=== PATIENT | female | born 1960 | race Caucasian/White ===

== ENCOUNTER 2023-08-15 20:10 | Emergency (ER) | payer OTHER, SELFPAY ==
[2023-08-15 20:14] VITALS: BP 159/88
[2023-08-15 20:16] LABS: Glucose - Point of Care 85 mg/dl (70-99)
[2023-08-15 20:37] LABS: % Basophils 0.4 % (0-2); % Eosinophils 2.1 % (0-6); % Immature Granulocytes 0.2 % (0-0.5); % Lymphocytes 27.5 % (20.5-51.1); % Monocytes 6.2 % (1.7-9.3); % Neutrophils 63.6 % (42.2-75.2); Absolute Eosinophils 0.2 10^3/uL (0-0.7); Absolute Lymphocytes 2.8 10^3/uL (1.2-3.4); Absolute Monocytes 0.6 10^3/uL (0.1-0.6); Absolute Neutrophils 6.6 10^3/uL (1.4-6.5); Hematocrit 46.9 % (37.0-47.0); Hemoglobin 15.3 g/dL (12.0-16.0); Mean Corp Hgb Conc. 32.6 g/dL (33.0-37.0); Mean Corpuscular Hgb 29.8 pg (27.0-31.0); Mean Corpuscular Volume 91.2 fL (81.0-99.0); Mean Platelet Volume 8.9 fL (7.4-10.4); Nucleated Red Blood Cells % 0 %; Platelet Count 251 10^3/uL (130-400); Red Blood Cell Count 5.14 10^6/uL (4.20-5.40); Red Cell Dist. Width 13.9 % (11.5-14.5); White Blood Cell Count 10.3 10^3/uL (4.8-10.8)
[2023-08-15 20:38] LABS: Urine Albumin Negative (Neg - Trace); Urine Bilirubin Negative (Negative); Urine Character Clear (Clear); Urine Color Yellow; Urine Glucose Negative (Negative); Urine Ketone Trace (Negative); Urine Leukocyte Negative (Negative); Urine Nitrite Negative (Negative); Urine Occult Blood Trace (Negative); Urine Specific Gravity 1.015 (<1.030); Urine Urobilinogen Negative (Neg - 1+); Urine pH 6.5 (5.0-9.0)
[2023-08-15 20:43] VITALS: BP 140/71
[2023-08-15] MEDS: ZOFRAN 4 MG IV (20:47)
[2023-08-15 20:48] LABS: Urine Bacteria Few (Negative); Urine Mucus Few; Urine Red Blood Cell 0-2 /HPF (0-2); Urine White Cell 0-2 /HPF (0-5)
[2023-08-15] MEDS: NSS 1000 IV (20:48)
[2023-08-15 20:50] LABS: ALT (SGPT) 21 U/L (0-35); AST (SGOT) 24 U/L (14-36); Albumin 4.8 g/dl (3.5-5.0); Alkaline Phosphatase 70 U/L (38-126); Blood Urea Nitrogen 15 mg/dl (7-17); Calcium 9.8 mg/dl (8.4-10.2); Carbon Dioxide 27 mmol/L (22-30); Chloride 104 mmol/L (98-107); Glucose 97 mg/dl (70-99); Lipase 54 U/L (23-300); Potassium 4.9 mmol/L (3.5-5.1); Sodium 137 mmol/L (135-145); Total Bilirubin 0.8 mg/dl (0.2-1.3); Total Protein 7.8 g/dl (6.3-8.2); eGFR > 60.00
[2023-08-15 21:00] VITALS: BP 134/70
[2023-08-15 22:00] VITALS: BP 126/69
[2023-08-15 22:08] LABS: Glucose - Point of Care 81 mg/dl (70-99)
[2023-08-15 23:00] VITALS: BP 118/72
--- NOTE | 2023-08-15 23:09 | ED.GENMED ---
History of Present Illness
General
Chief Complaint: Abdominal Symptoms
Source: patient and family (Daughter who is at bedside and interpreting for her mother)
Exam Limitations: none
Time Seen by Provider: 08/15/23 21:04
Nursing documentation reviewed up to this point in time: agreed with
Travel History
Have you had any contact with someone who has COVID-19?: No
Do you have any symptoms of coronavirus? Fever > 100 degrees, chills, cough, shortness of breath, sore throat, loss of taste or smell, muscle aches, or headache?: No
History of Present Illness
History of Present Illness:
This is a 63-year-old [place]-speaking woman who has history of prediabetes, tachycardia. She had been prescribed semaglutide by her PCP, and initial prescription in January. She had began taking semaglutide but then discontinued shortly after
initial dose in January, but she has been receiving refills of this prescription with several semaglutide pens 'stacking up' in her refrigerator.
Today she decided to resume semaglutide and used the 2 mg per dose pen and after injecting into her abdomen she did not believe that the pen was working, did not believe that she received the injection thus continued to repeatedly turn the handle
and repeat the injections until the full 8 mg cartridge was depleted. She denies wanting to hurt herself but was unsure as to exactly how to administer her medication. She complains of nausea several episodes of vomiting sporadically this
afternoon. She denies abdominal pain, denies fever nor chills, denies diarrhea or constipation. She was concern for possible hypoglycemia.
She takes no other medications for her diabetes. Her only other medication is bisoprolol prescribed for tachycardia. She denies taking extra bisoprolol.
Past History
Past History
ED Past Medical History: Arrthythmia (Tachycardia), HTN and NIDDM
ED Past Surgical History: Cholecystectomy
Social History
Tobacco: Non-smoker
Alcohol: None
Personal:
Living: with family
Family History
Family History: Other (Noncontributory)
Phy Exam
Physical Exam
Physical Exam:
GENERAL: 63-year-old woman appears her stated age, bright and alert, pleasant, appears in no acute distress. Daughter is accompanying.
EYE: pupils equal and reactive. anicteric
NECK: Supple, nontender, no meningismus, no significant adenopathy.
ENT: posterior pharynx is clear, oral mucosa is moist. No rhinorrhea.
CARDIAC: Regular rate and rhythm. no murmur.
LUNGS: Clear breath sounds bilaterally, no acute respiratory distress, no wheezes/rales/rhonchi
ABDOMEN: Soft, nondistended, without focal tenderness, no r/g, no cvat. normoactive BS.
NEUROLOGICAL: Alert and oriented x3, no focal neuro deficits.
SKIN: Warm and dry, normal color, skin intact. No rash.
MUSCULOSKELETAL: No C/C/E. peripheral pulses are full and equal b/l. No palpable tenderness.
PSYCH: Normal and appropriate interaction.
Course
Orders/Labs/Results
Orders:
Orders
08/15/23 20:25
Electrocardiogram (*1) Urgent
Reason for Study: Abdominal Pain
EKG- Treatment ONCE
IV Insert/Care/Rem.- Treatment PRN
08/15/23 20:29
Complete Blood Count/With Diff Urgent
Comprehensive Metabolic Panel Urgent
Lipase Urgent
Ondansetron Injectable [Zofran] 4 mg .ROUTE .STK-MED ONE
08/15/23 20:32
Urinalysis Reflex To Culture Urgent
Date Specimen was Collected: 08/15/23
Time Specimen was Collected: 20:25
Urine Microscopic Reflex Cult Urgent
08/15/23 20:45
Ondansetron Injectable [Zofran] 4 mg IV NOW STA
08/15/23 20:47
0.9% Sodium Chloride 1000 ml [Nss] 1,000 ml IV BOLUS
08/15/23 21:15
Encourage PO Hydration-Treatme ONCE
Abnormal Lab Results
08/15/23 08/15/23
20:29 20:32
MCHC 32.6 L g/dL
(33.0-37.0)
Absolute Neuts (auto) 6.6 H 10^3/uL
(1.4-6.5)
Urine Ketones Trace A
(Negative)
Ur Occult Blood Reflex Trace A
(Negative)
Urine Bacteria (Reflex) Few A
(Negative)
08/15/23 20:29
08/15/23 20:29
Vital Signs
Initial and Last Documented VS:
Initial Vital Signs
Temp Pulse Resp BP Pulse Ox
97.7 F 77 20 159/88 98
08/15/23 20:14 08/15/23 20:14 08/15/23 20:14 08/15/23 20:14 08/15/23 20:14
Last Documented Vital Signs
Temp Pulse Resp BP Pulse Ox
97.7 F 80 16 127/67 97
08/16/23 00:00 08/16/23 00:00 08/16/23 00:00 08/16/23 00:00 08/16/23 00:00
MDM/Problems Addressed
Differential Diagnosis Includes:
Concern for unintentional semaglutide overdose, concern for gastroparesis as cause for nausea and vomiting.
Abdomen is soft and nontender and patient denies abdominal pain. Small bowel obstruction is unlikely.
Semaglutide alone should not cause hypoglycemia and thus far she has had no episodes of hypoglycemia.
She remains hemodynamically stable.
Labs are unremarkable, reassuring.
After 1 IV dose of Zofran and nausea has resolved.
Will trial oral fluids.
Lengthy discussion with daughter and patient that the biggest side effect of semaglutide is GI issues/nausea and vomiting this is why initial dose is begun at 0.25 mg weekly for 4 weeks and then slowly titrated up from there on a monthly basis.
I suspect intermittent nausea will persist over the next several days but should resolve.
Recommend she absolutely avoid any further doses of semaglutide for at least the next 7 to 10 days.
Going forward if she elects to resume semaglutide recommend she start at the lowest dose, 0.25 mg weekly for 4 weeks.
Prompt follow-up with PCP for recheck.
A prescription for as needed Reglan will be provided for as needed nausea.
The patient able to tolerate oral fluids with no return of nausea will discharge to home.
Chronic conditions affecting care: DM and Arrhythmia
*Pulse Oximetry
Patient hypoxic: no
*EKG
Interpreted by ED Provider?: Yes
Interpretation: normal
Comparison EKG: no comparison EKG present
Rate: normal
Rhythm: sinus
[place]: normal axis
Interval: normal interval
QRS Pattern: normal QRS
Ischemia: no ischemia
*Supervising Editor [employer] Reel Interpretation
Rate: normal
Interpretation: normal
Rhythm: sinus
*Critical Care Note
Total Time (30-74mins, 75-104mins- exclusive of procedures): Not Applicable
ED Attending Note
-
Portions of this chart may have been created with voice recognition software.� Occasional wrong word or��sound alike� substitutions may have occurred due to the inherent limitations of voice recognition software.
Discharge Plan
Departure
Patient Disposition: Home (Routine Discharge)
Date of Disposition: 08/15/23
Time of Disposition: 23:09
Patient with high blood pressure during this ER visit?: No
Condition: Good
Discharge Problem:
unintentional semaglutide overdose
Instructions: Nausea and Vomiting, Adult (DC), Semaglutide
Prescriptions:
New
metoclopramide HCl [Reglan] 10 mg tablet
10 mg PO Q6H PRN (Reason: nausea and vomiting) Qty: 20 0RF
Referrals:
Magdalena Bianchi MD [Family Provider] - Call in 1-3 days for appt
Interventions
Interventions:
*Risk Screen - Suicide Last Done: 08/15/23 20:14
*General Assessment Last Done: 08/15/23 20:14
*Neglect/Abuse Screening Last Done: 08/15/23 20:14
ED- Fall Risk Assessment Last Done: 08/15/23 20:14
*ED COVID-19 Vaccine History Last Done: 08/15/23 20:14
*Nursing Disposition Last Done: 08/16/23 00:00
UT-Shxxho-Ndqrevadgt Assessment Last Done: 08/15/23 20:58
ED- Cardiac Assessment Last Done: 08/15/23 23:30
ED- Neurological Assessment Last Done: 08/15/23 20:58
ED Swallowing Screen Last Done: 08/15/23 21:42
[2023-08-15 23:57] VITALS: BP 127/67
[2023-08-16] VITALS: BP 127/67
== END 2023-08-16 | disposition home or self-care (01) ==
LOC: EMR 20:10
PROVIDERS: EMERGENCY PHYSICIAN Emergency Medicine; FAMILY PHYSICIAN Internal Medicine
DX: T65.891A Toxic effect of other specified substances, accidental (unintentional), initial encounter (principal); E11.649 Type 2 diabetes mellitus with hypoglycemia without coma
CPT/HCPCS: 99284; 96374; 96361; 80053; 81003; 81015; 82962; 83690; 85025; 93005

== ENCOUNTER 2024-06-07 23:52 | Emergency (ER) | payer OTHER, SELFPAY ==
[2024-06-07 23:56] VITALS: BP 136/79
[2024-06-08] MEDS: TYLENOL 1000 MG PO (00:12)
[2024-06-08 01:19] LABS: % Basophils 0.4 % (0-2); % Eosinophils 2.4 % (0-6); % Immature Granulocytes 0.2 % (0-0.5); % Lymphocytes 35.7 % (20.5-51.1); % Monocytes 7.2 % (1.7-9.3); % Neutrophils 54.1 % (42.2-75.2); Absolute Eosinophils 0.2 10^3/uL (0-0.7); Absolute Lymphocytes 3.3 10^3/uL (1.2-3.4); Absolute Monocytes 0.7 10^3/uL (0.1-0.6); Absolute Neutrophils 5.1 10^3/uL (1.4-6.5); Hematocrit 39.9 % (37.0-47.0); Hemoglobin 13.3 g/dL (12.0-16.0); Mean Corp Hgb Conc. 33.3 g/dL (33.0-37.0); Mean Corpuscular Hgb 30.2 pg (27.0-31.0); Mean Corpuscular Volume 90.7 fL (81.0-99.0); Mean Platelet Volume 9.1 fL (7.4-10.4); Nucleated Red Blood Cells % 0 %; Platelet Count 259 10^3/uL (130-400); White Blood Cell Count 9.4 10^3/uL (4.8-10.8)
[2024-06-08 01:37] LABS: Urine Albumin Negative (Neg - Trace); Urine Bilirubin Negative (Negative); Urine Character Clear (Clear); Urine Color Yellow; Urine Glucose Negative (Negative); Urine Ketone Negative (Negative); Urine Leukocyte Negative (Negative); Urine Nitrite Negative (Negative); Urine Occult Blood Negative (Negative); Urine Specific Gravity 1.025 (<1.030); Urine Urobilinogen Negative (Neg - 1+)
[2024-06-08 02:32] LABS: ALT (SGPT) 23 U/L (0-35); AST (SGOT) 25 U/L (14-36); Albumin 4.4 g/dl (3.5-5.0); Alkaline Phosphatase 83 U/L (38-126); Blood Urea Nitrogen 21 mg/dl (7-17); Calcium 9.9 mg/dl (8.4-10.2); Carbon Dioxide 27 mmol/L (22-30); Chloride 101 mmol/L (98-107); Glucose 125 mg/dl (70-99); Potassium 4.6 mmol/L (3.5-5.1); Sodium 139 mmol/L (135-145); Total Bilirubin 0.3 mg/dl (0.2-1.3); eGFR > 60.00
[2024-06-08 03:29] VITALS: BMI 34.3
[2024-06-08] MEDS: VALIUM 5 MG PO (05:15)
--- NOTE | 2024-06-08 05:42 | ED.MUSCINJ ---
HPI-Injury
General
Chief Complaint: Fall
Source: patient and family
Exam Limitations: none
Time Seen by Provider: 06/08/24 03:32
Nursing documentation reviewed up to this point in time: agreed with
History of Present Illness-Injury
Initial Injury comments:
This a 64-year-old female presents emergency department with left-sided lower rib pain and back pain. She states that she slipped down 3 [address] steps. Patient was having difficulty breathing. Report reports painful inspiration on the left.
Denies fever or chills. Reports no abdominal pain. Moves all 4 extremities which are warm and dry. Denies any numbness or tingling. Has been able to ambulate without issue.
Past History
Past History
ED Past Medical History: Arrthythmia (Tachycardia), HTN and NIDDM
ED Past Surgical History: Cholecystectomy
Social History
Tobacco: Non-smoker
Alcohol: None
Personal:
Living: with family
Family History
Family History: Other (Noncontributory)
Phy Exam
General Physical Exam
General Presentation: well appearing and mild distress
General age: appears stated age
General Skin: warm and dry
General Habitus: normal
General Mental: alert
General Hydration: appears well hydrated
Pulmonary Exam
Pulmonary Exam: lungs clear
Neurological Exam
Neurological Exam: alert and oriented x3
Musculoskeletal Exam
Musculoskeletal Exam: full ROM and other (Patient has tenderness to palpation in her lower ribs on the left. She has absolutely no abdominal pain to superficial or deep palpation. No hepatosplenomegaly noted. She does have pain with movement.)
Skin Exam
Skin Exam: normal color and warm/dry
Injury Course
Orders/Labs/Results
Orders:
Orders
06/08/24
Electrocardiogram (*1) Stat
Reason for Study: Chest Pain
Comment: DONE
06/08/24 00:08
Acetaminophen [Tylenol] 1,000 mg PO NOW STA
06/08/24 00:10
Acetaminophen [Tylenol] 1,000 mg .ROUTE .STK-MED ONE
06/08/24 01:13
Complete Blood Count/With Diff Urgent
Comprehensive Metabolic Panel Urgent
06/08/24 01:19
Urinalysis Reflex To Culture Urgent
Date Specimen was Collected: 06/08/24
Time Specimen was Collected: 01:06
06/08/24 03:27
CR Ribs-left 3 Vw W/pa Chest Urgent
Reason For Exam: rib pain after fall
06/08/24 05:11
Diazepam [Valium] 5 mg PO NOW STA
Abnormal Lab Results
06/08/24
01:13
Absolute Monos (auto) 0.7 H 10^3/uL
(0.1-0.6)
BUN 21 H mg/dl
(7-17)
Glucose 125 H mg/dl
(70-99)
06/08/24 01:13
06/08/24 01:13
*Critical Care Note
Total Time (30-74mins, 75-104mins- exclusive of procedures): Not Applicable
Update Note
Update Note:
X-rays were deemed negative by myself. I do not see any evidence of acute osseous abnormality. Patient's pain appears to be musculoskeletal as it is reproducible with twisting of the torso palpation on the 12th rib medially. I did give her Valium
and she states that her symptoms had improved. At this point patient wishes to be discharged home. She had no further questions. She is accompanied by her daughter who helped with translation.
ED Attending Note
-
Portions of this chart may have been created with voice recognition software.� Occasional wrong word or��sound alike� substitutions may have occurred due to the inherent limitations of voice recognition software.
Discharge Plan
Departure
Patient Disposition: Home (Routine Discharge)
Date of Disposition: 06/08/24
Time of Disposition: 05:48
Patient with high blood pressure during this ER visit?: Yes
Discharge Problem:
Pain in rib, Fall
Instructions: Preventing falls in adults, How to use an incentive spirometer, Rib fracture or bruised rib - ED discharge instructions, BLOOD PRESSURE
Prescriptions:
New
diclofenac sodium 75 mg tablet,delayed release (DR/EC)
75 mg PO BID PRN (Reason: Pain) Qty: 20 0RF
diazepam [Valium] 10 mg tablet
10 mg PO BID PRN (Reason: muscle spasm) Qty: 7 0RF
No Action
metoclopramide HCl [Reglan] 10 mg tablet
10 mg PO Q6H PRN (Reason: nausea and vomiting) Qty: 20 0RF
Referrals:
Magdalena Bianchi MD [Family Provider] -
Activity Restrictions/Additional Instructions:
It was a pleasure meeting you and taking part in your care. We hope for your continued healing and wellness.
Please read discharge instructions in their entirety. However, they are for general education and may not describe your exact diagnosis at discharge. Information on your ER visit and medical conditions were discussed with you along with appropriate
follow up information...
If indicated, please take your medications as instructed and indicated on discharge paperwork.
Please schedule a follow up appointment as directed. Call to schedule an appointment
Please return to the emergency department with ANY change in, persisting, or worsening of symptoms. If any of your symptoms do not improve, or persist, or become more severe within 6-12 hours, please return to the emergency department for further
care.
Please return to the emergency department if you develop a headache, neck pain/stiffness, fever greater than 100.4F, chest pain, shortness of breath, persistent nausea, vomiting, slurred speech, difficulty walking, numbness/tingling, weakness, signs
of infection or any other symptoms that are worrisome to you.
If you have any questions or concerns please do not hesitate to call the Hospital at or E-mail me directly at [email or web address]
Interventions
Interventions:
*Risk Screen - Suicide Last Done: 06/07/24 23:56
*General Assessment Last Done: 06/08/24 03:29
*Neglect/Abuse Screening Last Done: 06/07/24 23:56
ED- Fall Risk Assessment Last Done: 06/08/24 03:29
*ED COVID-19 Vaccine History Last Done: 06/07/24 23:56
*Nursing Disposition Last Done: 06/08/24 06:38
ED-Musculoskeletal Assessment Last Done: 06/08/24 03:31
ED- Neurological Assessment Last Done: 06/08/24 03:29
ED-Skin Assessment Last Done: 06/08/24 03:29
Discharge Date and Time
Discharge Date/Time: 06/08/24 06:00
Print Language: BULGARIAN
[2024-06-08 06:38] VITALS: BP 122/64
== END 2024-06-08 06:00 | disposition home or self-care (01) ==
LOC: EMR 23:52
PROVIDERS: EMERGENCY PHYSICIAN Student in an Organized Health Care Education/Training Program; FAMILY PHYSICIAN Internal Medicine
DX: R07.89 Other chest pain (principal); R07.81 Pleurodynia; W10.9XXA Fall (on) (from) unspecified stairs and steps, initial encounter; I10 Essential (primary) hypertension; E11.36 Type 2 diabetes mellitus with diabetic cataract; Z90.49 Acquired absence of other specified parts of digestive tract; Z87.891 Personal history of nicotine dependence
CPT/HCPCS: 99283; 71101; 80053; 81003; 85025; 93005